=== PATIENT | female | born 1965 | race African-American/Black ===

== ENCOUNTER 2017-10-03 18:34 | Emergency (ER) | payer MEDICAID, OTHER ==
[~2017-10-03] VITALS: Ht 160 cm; Wt 59.0 kg
[~2017-10-03 18:34] MED LIST: AMLODIPINE BES2.5 MG ORAL; ATORVASTATIN CA10 MG ORAL; FOLIC ACID1 M1 PO; HYDRALAZINE HCL25 M2 PO; HYDROCHLOROTHIA50 MG ORAL; LEVAQUIN250 M1 ORAL; NIFEDIPINE XL30 M1 ORAL; NKM; ZANTAC300 MG ORAL
[2017-10-03 19:00] VITALS: BP 118/81
[2017-10-03] MEDS ORDERED: Norco 5mg/325mg tab ORAL ONE (19:00)
[2017-10-03 21:00] VITALS: BP 174/96
[2017-10-03] MEDS ORDERED: NORCO 5-325 TA1 EACH ORAL (21:01)
[2017-10-03 23:00] VITALS: BP 167/85
[2017-10-04 01:00] VITALS: BP 156/77
[2017-10-04 03:00] VITALS: BP 166/79
[2017-10-04 04:29] VITALS: BP 135/83
[2017-10-04 04:30] VITALS: BP 118/81
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
== END 2017-10-04 04:31 | disposition home or self-care (01) ==
LOC: EDSEX 18:34 → EDBD 18:34 → EMR 18:43
DX: S00.83XA Contusion of other part of head, initial encounter (principal); Y04.2XXA Assault by strike against or bumped into by another person, initial encounter; Y92.9 Unspecified place or not applicable; R51 Headache; I10 Essential (primary) hypertension; J45.909 Unspecified asthma, uncomplicated
CPT/HCPCS: 70540; 70551; 99284